=== PATIENT | female | born 1970 | race Caucasian/White ===

== ENCOUNTER 2017-03-07 10:24 | Emergency (ER) | payer MEDICAID ==
[~2017-03-07] VITALS: Ht 154.9 cm; Wt 65.0 kg
[~2017-03-07 10:24] MED LIST: ASPI-515 PO
[2017-03-07] MEDS ORDERED: SODIUM CHLORIDE 0.9% 1,000ML IVBOLUS ONE (11:00)
[2017-03-07] MEDS ORDERED: KETOROLAC 30 MG/1 ML IVPush ONE (11:00)
[2017-03-07] MEDS ORDERED: MORPHINE SULFATE 4 MG/ML, 1ML IVPush PRN (11:00)
[2017-03-07] MEDS ORDERED: ONDANSETRON 2MG/ML, 2ML IVPush ONE ×2 (11:00→12:00)
[2017-03-07] MEDS ORDERED: SODIUM CHLORIDE FLUSH 10ML SYR IVF ONE (11:00)
[2017-03-07 11:26] LABS: BLOOD UREA NITROGEN 15 mg/dL (7-18)
[2017-03-07] MEDS ORDERED: KETOROLAC 30 MG/1 ML ONE (11:36)
[2017-03-07 11:40] VITALS: BP 123/76
== END 2017-03-07 13:08 | disposition home or self-care (01) ==
LOC: MERGE 10:24 → ED 11:35
DX: N20.0 Calculus of kidney (principal); N13.2 Hydronephrosis with renal and ureteral calculous obstruction
CPT/HCPCS: 36415; 76770; 80048; 81001; 82040; 85025; 96361; 96374; 99285; J1885; J7030

== ENCOUNTER → 2017-03-23 | Outpatient (CLI) | payer MEDICAID | END | disposition home or self-care (01) | LOC: CFH 07:14 | PROVIDERS: ATTEND Urology | DX: N20.0 Calculus of kidney (principal); N13.39 Other hydronephrosis; I87.8 Other specified disorders of veins | CPT/HCPCS: 74000; 76770 ==

== ENCOUNTER → 2017-04-11 | Outpatient (CLI) | payer MEDICAID | END | disposition home or self-care (01) | LOC: CFH 08:05 | PROVIDERS: ATTEND Urology | DX: N13.30 Unspecified hydronephrosis (principal); N20.0 Calculus of kidney | CPT/HCPCS: 74176 ==

== ENCOUNTER 2018-06-19 20:47 | Emergency (ER) | payer MEDICAID ==
[~2018-06-19] VITALS: Ht 154.9 cm; Wt 60.0 kg
[2018-06-19 20:49] VITALS: BP 140/70
== END 2018-06-19 21:44 | disposition home or self-care (01) ==
LOC: ED 21:08
DX: S93.492A Sprain of other ligament of left ankle, initial encounter (principal); Z91.041 Radiographic dye allergy status; Z88.1 Allergy status to other antibiotic agents; Z91.011 Allergy to milk products; Z88.8 Allergy status to other drugs, medicaments and biological substances; X50.1XXA Overexertion from prolonged static or awkward postures, initial encounter; Y93.89 Activity, other specified; Y92.488 Other paved roadways as the place of occurrence of the external cause; Y99.8 Other external cause status
CPT/HCPCS: 99284

== ENCOUNTER 2018-11-25 17:13 | Emergency (ER) | payer MEDICAID ==
[~2018-11-25] VITALS: Ht 154.9 cm; Wt 57.3 kg
[2018-11-25 17:15] VITALS: BP 132/79
--- NOTE | 2018-11-25 17:32 | NUR ---
break rn: pt ambulatory with steady gait to room from imaging.
== END 2018-11-25 18:49 | disposition home or self-care (01) ==
LOC: ED 18:43
DX: S16.1XXA Strain of muscle, fascia and tendon at neck level, initial encounter (principal); V49.49XA Driver injured in collision with other motor vehicles in traffic accident, initial encounter; Y93.89 Activity, other specified; Y92.410 Unspecified street and highway as the place of occurrence of the external cause; Y99.8 Other external cause status
CPT/HCPCS: 72050; 72072; 99283

== ENCOUNTER 2019-03-14 05:03 | Emergency (ER) | payer MEDICAID ==
[~2019-03-14] VITALS: Ht 152.4 cm; Wt 59.0 kg
[2019-03-14 06:48] VITALS: BP 102/64
== END 2019-03-14 09:25 | disposition home or self-care (01) ==
LOC: ED 06:17
DX: N13.2 Hydronephrosis with renal and ureteral calculous obstruction (principal); N13.30 Unspecified hydronephrosis; R31.9 Hematuria, unspecified; Z88.0 Allergy status to penicillin; Z88.5 Allergy status to narcotic agent
CPT/HCPCS: 36415; 74176; 80048; 81001; 82040; 85025; 87077; 87086; 99284

== ENCOUNTER 2019-03-20 01:00 | Emergency (ER) | payer MEDICAID ==
[~2019-03-20] VITALS: Ht 154.9 cm; Wt 59.0 kg
--- NOTE | 2019-03-20 01:19 | NUR ---
GIVEN 100 MCG OF FENT IN ROUTE BY [facility] , EMS TEAM.
[2019-03-20] MEDS ORDERED: ONDANSETRON 2MG/ML, 2ML IVPush ONE (01:30)
[2019-03-20] MEDS ORDERED: SODIUM CHLORIDE FLUSH 10ML SYR IVF ONE (01:30)
[2019-03-20] MEDS ORDERED: ONDANSETRON 2MG/ML, 2ML ONE (01:37)
--- NOTE | 2019-03-20 01:38 | NUR ---
STERILE STRAIGHT CATH FOR UA. SENT TO THE LAB. PT TO CT. Addendum: 03/20/19 at 0150 by ARAM [address] RAY NOT [address].
[2019-03-20 01:41] LABS: BASOPHILS # (AUTO) 0.06 x10^3/uL (0-0.1); BASOPHILS % (AUTO) 1 % (0-1); EOSINOPHILS # (AUTO) 0.17 x10^3/uL (0-0.4); EOSINOPHILS % (AUTO) 3 % (1-7); LYMPHOCYTES # (AUTO) 1.33 x10^3/uL (1-3.4); LYMPHOCYTES % (AUTO) 19 % (22-44); MD NO; MEAN CORPUSCULAR VOLUME 87.9 fL (80-100); MEAN PLATELET VOLUME 7.4 fL (7.4-10.4); MONOCYTES # (AUTO) 0.42 x10^3/uL (0.2-0.8); MONOCYTES % (AUTO) 6 % (2-9); NEUTROPHILS # (AUTO) 4.95 x10^3/uL (1.8-6.8); NEUTROPHILS % (AUTO) 71 % (42-75); PLATELET COUNT 238 x10^3/uL (130-400); RED BLOOD COUNT 3.99 x10^6/uL (3.82-5.3); RED CELL DISTRIBUTION WIDTH 13.1 % (9.6-15.2)
[2019-03-20 01:47] LABS: MICROSCOPIC INDICATED
--- NOTE | 2019-03-20 01:49 | NUR ---
BACK FROM CT. MEDICATED. Addendum: 03/20/19 at 0150 by PSEGER [address] RAY NOT [address].
[2019-03-20 01:51] LABS: ALANINE AMINOTRANSFERASE 22 U/L (12-78); ALBUMIN 3.9 g/dL (3.4-5.0); ANION GAP 7 mmol/L (5-15); CALCIUM 8.7 mg/dL (8.5-10.1); CHLORIDE 108 mmol/L (98-107); CREATININE 0.76 mg/dL (0.55-1.02)
[2019-03-20 01:53] LABS: ALKALINE PHOSPHATASE 49 U/L (45-117); BILIRUBIN,TOTAL 0.2 mg/dL (0.2-1.0); TOTAL PROTEIN 7.4 g/dL (6.4-8.2)
--- NOTE | 2019-03-20 01:53 | NUR ---
CHLORHEXIDINE USED VS. BETADINE AT THE PT REQUEST.
[2019-03-20 01:54] LABS: CULTURE INDICATED? NO
[2019-03-20 03:11] VITALS: BP 101/67
[2019-03-20] MEDS ORDERED: KETOROLAC 30 MG/1 ML IVPush ONE (03:30)
[2019-03-20] MEDS ORDERED: KETOROLAC 30 MG/1 ML ONE (03:40)
[2019-03-20] MEDS ORDERED: DIPHENHYDRAMINE 25 MG CAPSULE ONE (03:40)
--- NOTE | 2019-03-20 03:48 | NUR ---
THE PT C/O ITCHING. ERP UPDATED. THE PT WAS MEDICATED BEFORE D/C. Addendum: 03/20/19 at 0350 by PSEGER THE PT PAIN 10/27 BUT "I CAN FEEL IT COMING BACK". MEDICATED FOR PAIN BEFORE D/C.
[2019-03-20] MEDS ORDERED: DIPHENHYDRAMINE 25 MG CAPSULE PO ONE (04:00)
--- NOTE | 2019-03-20 04:02 | NUR ---
D/C INST REVIEWED W/ THE PT TO INCLUDE: BOWEL CARE, NEW RX, FLUIDS, F/U OP W/ RENAL REFERRAL, AND PAIN MANAGEMENT W/ OTC IBU/TYLENOL. THE PT VERB UNDERSTANDING AND DENIES QUESTIONS. THE PT AMB OUT OF THE ED W/O DIFF IN THE CARE OF HER FRIEND.
== END 2019-03-20 04:07 | disposition home or self-care (01) ==
LOC: ED 01:16
DX: N13.2 Hydronephrosis with renal and ureteral calculous obstruction (principal); Z90.49 Acquired absence of other specified parts of digestive tract
CPT/HCPCS: 36415; 74018; 76770; 80053; 81001; 85025; 96374; 96375; 99284; J1885; J2405; Q0163

== ENCOUNTER 2019-12-13 11:26 | Emergency (ER) | payer MEDICAID ==
[~2019-12-13] VITALS: Ht 154.9 cm; Wt 62.0 kg
[~2019-12-13 11:26] MED LIST changes: +ERGO500018 PO; +LEVO50TA5 PO; +THYROID PO
[2019-12-13 12:04] VITALS: BP 124/81
[2019-12-13] MEDS ORDERED: AZIT250T PO (12:04)
[2019-12-13] MEDS ORDERED: ALBU0.63 NEB (12:04)
--- NOTE | 2019-12-13 12:04 | NUR ---
PA EXAMINING PT
--- NOTE | 2019-12-13 12:09 | NUR ---
PT STATES SORE THROAT, FEVER SUNDAY WITH DEVELOPING BODYACHES. AT THIS TIME BODYACHES ALMOST GONE BUT HAS A DRY COUGH AND SHE CANNOT SLEEP. PT STATES SOMETIMES SHE FEELS LIKE SHE IS HAVING AN ANXIETY ATTACK AND CANNOT BREATHE. PT SPEAKING IN FULL SENTENCES, ON MONITOR AND NOT REQUIRING OXYGENT AT THIS TIME. PT NOTED TO HAVE EPISODES OF DRY COUGH. AWAITING XRAY
== END 2019-12-13 12:43 | disposition home or self-care (01) ==
LOC: ED 11:43
DX: B34.9 Viral infection, unspecified (principal); Z88.0 Allergy status to penicillin
CPT/HCPCS: 71045; 99283

== ENCOUNTER 2020-05-14 10:52 | Emergency (ER) | payer MEDICAID, OTHER ==
[~2020-05-14] VITALS: Ht 154.9 cm; Wt 66.0 kg
[~2020-05-14 10:52] MED LIST changes: +ALBU0.63 NEB; +AZIT250T PO
--- NOTE | 2020-05-14 11:14 | NUR ---
PT HAS CO BACK PAIN W CRAMPS, RADIATES TO ABDOMEN. NO INJURY OR TRAUMA. DENIES PAINFUL URINATION, NO BLOOD IN URINE. DENIES CP OR SOB. SYMPTOMS STARTED YESTERDAY.
[2020-05-14 11:30] LABS: MICROSCOPIC AUTO
[2020-05-14 12:17] LABS: ALANINE AMINOTRANSFERASE 53 U/L (12-78); ALBUMIN 3.9 g/dL (3.4-5.0); ANION GAP 6 mmol/L (5-15); CALCIUM 8.7 mg/dL (8.5-10.1); CHLORIDE 107 mmol/L (98-107); CREATININE 0.67 mg/dL (0.55-1.02)
[2020-05-14 12:19] LABS: ALKALINE PHOSPHATASE 53 U/L (45-117); BILIRUBIN,TOTAL 0.2 mg/dL (0.2-1.0); TOTAL PROTEIN 7.4 g/dL (6.4-8.2)
[2020-05-14 12:27] LABS: BASOPHILS # (AUTO) 0.06 x10^3/uL (0-0.1); BASOPHILS % (AUTO) 1 % (0-1); EOSINOPHILS # (AUTO) 0.17 x10^3/uL (0-0.4); EOSINOPHILS % (AUTO) 3 % (1-7); LYMPHOCYTES # (AUTO) 2.15 x10^3/uL (1-3.4); LYMPHOCYTES % (AUTO) 34 % (22-44); MD NO; MEAN CORPUSCULAR HEMOGLOBIN 28.6 pg (27.0-34.8); MEAN CORPUSCULAR HGB CONC 32.4 g/dL (32.4-35.8); MEAN PLATELET VOLUME 7.3 fL (7.4-10.4); MONOCYTES # (AUTO) 0.52 x10^3/uL (0.2-0.8); MONOCYTES % (AUTO) 8 % (2-9); NEUTROPHILS # (AUTO) 3.49 x10^3/uL (1.8-6.8); NEUTROPHILS % (AUTO) 55 % (42-75); PLATELET COUNT 256 x10^3/uL (130-400); RED BLOOD COUNT 4.13 x10^6/uL (3.82-5.3); RED CELL DISTRIBUTION WIDTH 13.7 % (9.6-15.2)
--- NOTE | 2020-05-14 13:08 | NUR ---
REPORT TO TERRENCE
[2020-05-14 13:24] VITALS: BP 130/69
--- NOTE | 2020-05-14 13:27 | NUR ---
REPORT FROM TABATHA ALVARENGA. PT AWAKE/ALERT, SITTING UP IN [facility]. MODERATE DISTRESS SECONDARY TO PAIN, REPORTS 9/10 ABD PAIN. PAIN/NAUSEA WORSENS WITH SITTING UPRIGHT. HEAD OF BED LOWERED WITH SOME RELIEF OF PAIN. ERP AWARE. AWAITING ORDERS, CHART UP FOR RECHECK
[2020-05-14] MEDS ORDERED: KETOROLAC 60 MG/2 ML ONE (13:37)
--- NOTE | 2020-05-14 13:43 | NUR ---
PT MEDICATED PER EMAR FOR 04/29 PAIN. POC IS DC. PT OFF MONITORING AND UP TO DRESS AT THIS TIME
[2020-05-14] MEDS ORDERED: KETOROLAC 60 MG/2 ML IM ONE (14:00)
--- NOTE | 2020-05-14 14:04 | NUR ---
DC EDUCATION PROVIDED, PT DEMONSTRATES UNDERSTANDING. PT AMBULATED STEADILY TO DC WITH RN
== END 2020-05-14 14:06 | disposition home or self-care (01) ==
LOC: ED 13:10
DX: N13.2 Hydronephrosis with renal and ureteral calculous obstruction (principal); R31.9 Hematuria, unspecified; E78.5 Hyperlipidemia, unspecified
CPT/HCPCS: 36415; 74018; 76700; 80053; 81001; 85025; 96372; 99285; J1885

== ENCOUNTER 2020-05-29 01:03 | Emergency (ER) | payer MEDICAID ==
[~2020-05-29] VITALS: Ht 154.9 cm; Wt 63.5 kg
--- NOTE | 2020-05-29 01:46 | NUR ---
THIS IS A 50Y F THAT COMES IN FOR SORE THROAT, PT STS SHE WAS SEEN AT URGENT CARE AND HAD NEGATIVE STREP AND COVID TESTS THIS WEEK. PT CONNECTED TO MONITORING VSS NADN. CALL LIGHT IN REACH
[2020-05-29] MEDS ORDERED: MAALOX/HYOSCYAMINE/LIDOCAINE 45 ML BTL ONE (02:53)
[2020-05-29 02:55] VITALS: BP 108/69
[2020-05-29] MEDS ORDERED: MAALOX/HYOSCYAMINE/LIDOCAINE 45 ML BTL PO ONE (03:00)
--- NOTE | 2020-05-29 03:02 | NUR ---
PT PROVIDED GI COCKTAIL PER DR FERNANDEZ AT THIS TIME
--- NOTE | 2020-05-29 03:20 | NUR ---
ERP AT BEDSIDE TO DISCUSS POC
--- NOTE | 2020-05-29 03:25 | NUR ---
Patient/Caregiver given discharge instructions and they have confirmed that they understand the instructions. Patient ambulatory with steady gait.
== END 2020-05-29 03:39 | disposition home or self-care (01) ==
LOC: ED 01:44
DX: R13.10 Dysphagia, unspecified (principal); J02.9 Acute pharyngitis, unspecified; E78.5 Hyperlipidemia, unspecified
CPT/HCPCS: 99282; 99283

== ENCOUNTER → 2020-06-09 | Outpatient (CLI) | payer MEDICAID | END | disposition home or self-care (01) | LOC: CFH 11:01 | PROVIDERS: ATTEND Urology | DX: K76.0 Fatty (change of) liver, not elsewhere classified (principal); J84.10 Pulmonary fibrosis, unspecified; M50.122 Cervical disc disorder at C5-C6 level with radiculopathy; M47.814 Spondylosis without myelopathy or radiculopathy, thoracic region; N20.0 Calculus of kidney; M79.18 Myalgia, other site; Z87.442 Personal history of urinary calculi | CPT/HCPCS: 72050; 72082; 74176 ==

== ENCOUNTER → 2021-04-01 | Outpatient (CLI) | payer MEDICAID ==
[~2021-04-01] MED LIST changes: -ASPI-515 PO; +ASPI-963 PO; +ERGO1250 PO; -ERGO500018 PO
== END | disposition home or self-care (01) ==
LOC: CFH 14:32
PROVIDERS: ATTEND Family Medicine
DX: Z12.31 Encounter for screening mammogram for malignant neoplasm of breast (principal); Z12.39 Encounter for other screening for malignant neoplasm of breast
CPT/HCPCS: 76641; 77063; 77067